=== PATIENT | male | born 1970 | race Caucasian/White ===

== ENCOUNTER 2022-12-19 22:59 | Emergency (ER) | payer BC, SELFPAY ==
[2022-12-19 23:02] VITALS: BP 136/96; PULSE 94; RESP 18; TEMP 36.7; O2SAT 98
--- NOTE | 2022-12-19 23:16 | ECG_ITS ---
Measurements Intervals [place] Rate: 76 P: 48 VA: 199 QRS: -52 QRSD: 98 T: 16 QT: 372 QTc: 418 Interpretive Statements SINUS RHYTHM LOW QRS VOLTAGE IN PRECORDIAL LEADS [QRS DEFLECTION < 1.0 mV IN CHEST LEADS] LEFT ANTERIOR FASCICULAR BLOCK [QRS AXIS <= -45, QR IN I, RS IN II] PREVIOUS iNFERIOR MYOCARDIAL INFARCTION , ABNORMAL ECG NO PREVIOUS ECG AVAILABLE FOR COMPARISON Electronically Signed On 12-20-2022 8:30:56 CDT by Bravo Solis M.D.
--- NOTE | 2022-12-19 23:20 | ED.GENADULT ---
HPI - General Adult General Chief complaint: Unspecified Stated complaint: weak, cramping, outside all day Time Seen by Provider: 12/19/22 23:09 History of Present Illness HPI narrative: Patient is a 52-year-old male here for evaluation of diffuse muscle cramping x1 day. 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 He states that he started to develop some diffuse muscle cramping. He has been getting intermittently sweaty. He states he stayed well-hydrated today but the cramping has gotten worse. No weakness, lightheadedness, nausea, vomiting, fevers, chills. He does take pravastatin but has been on this for 12 years. Related Data Allergies Allergy/AdvReac Type Severity Reaction Status Date / Time No Known Allergies Allergy Verified 12/19/22 23:00 Review of Systems Review of Systems: Gen.: Denies fevers or chills Eyes: Denies eye pain or visual change ENT: Denies congestion Respiratory: Denies shortness of breath or cough CV: Denies chest pain or palpitations GI: Denies abdominal pain nausea, emesis or diarrhea : denies burning, urgency, frequency or hematuria Musculoskeletal: Reports muscle cramping Neuro: Denies numbness, tingling, weakness or focal weakness Skin: Denies rash Except as documented, all other systems reviewed and negative Exam Narrative: APPEARANCE: Well appearing, no pain in distress, well-nourished. Head: Normocephalic and atraumatic. EYES: PERRLA/EOMI, conjunctivae clear NOSE: No nasal drainage EARS: External ear normal in appearance THROAT: Oropharynx is clear. Mucous membranes are moist. NECK: Supple. No adenopathy, no masses. RESPIRATORY: Airway patent, respirations nonlabored. Clear to auscultation bilaterally, no rales, rhonchi, wheezing. CARDIOVASCULAR: Regular rate and rhythm without murmurs, rubs, or gallops. ABDOMINAL: Normoactive bowel sounds. Soft, nontender, nondistended. No rebound tenderness or guarding. MUSCULOSKELETAL: Extremities are warm and well-perfused. Moves all extremities well. No edema. NEURO: Normal speech. No focal neurologic deficits. SKIN: Skin is warm and dry. No rashes. PSYCHIATRIC: Normal affect/mood. Course Vital Signs Vital signs: Vital Signs Temperature 98.1 F 12/19/22 23:02 Pulse Rate 94 12/19/22 23:02 Respiratory Rate 18 12/19/22 23:02 Blood Pressure 136/96 H 12/19/22 23:02 Pulse Oximetry 98 12/19/22 23:02 Oxygen Delivery Room Air 12/19/22 23:02 Temperature 98.1 F 12/19/22 23:02 Pulse Rate 73 12/20/22 01:01 Respiratory Rate 12 12/20/22 01:01 Blood Pressure 139/79 12/20/22 01:01 Pulse Oximetry 100 12/20/22 01:01 Oxygen Delivery Room Air 12/19/22 23:02 Medical Decision Making MDM Narrative Medical decision making narrative: 52-year-old male here for evaluation of muscle cramping and feeling sweaty after working outside in the heat all day. He is nontoxic in appearance and has normal vital signs. His EKG and troponin are nonischemic. His sodium is 131, potassium 3.2, creatinine is 1.5, CK slightly elevated at 813, not elevated enough to consider rhabdomyolysis. He was rehydrated and his potassium was repleted with marked improvement of his symptoms and he feels ready to go home. He understands he needs to get his electrolytes rechecked by his primary care doctor and push fluids over the next week. We discussed return precautions and he voiced understanding. Vital Signs Vital Signs: Vital Signs Temperature 98.1 F 12/19/22 23:02 Pulse Rate 94 12/19/22 23:02 Respiratory Rate 18 12/19/22 23:02 Blood Pressure 136/96 H 12/19/22 23:02 Pulse Oximetry 98 12/19/22 23:02 Oxygen Delivery Room Air 12/19/22 23:02 Temperature 98.1 F 12/19/22 23:02 Pulse Rate 73 12/20/22 01:01 Respiratory Rate 12 12/20/22 01:01 Blood Pressure 139/79 12/20/22 01:01 Pulse Oximetry 100 12/20/22 01:01 Oxygen Delivery Room Air 12/19/22 23
[2022-12-19 23:31] VITALS: BP 143/88; PULSE 77; RESP 13; O2SAT 98
[2022-12-19 23:31] LABS: Basophils Percent Auto 0.3 % (0.2-1.2); Eosinophils Percent Auto 0.1 % (0-4.4); Hematocrit 39.9 % (42.0-52.0); Hemoglobin 14.5 g/dL (14.0-18.0); Immature Granulocyte Absolute 0.03 K/mm3 (0.00-0.031); Immature Granulocyte Percent A 0.3 % (0-0.5); Lymphocytes Absolute Auto 1.61 K/mm3 (0.9-3.2); Lymphocytes Percent Auto 18.7 % (18.3-44.2); Mean Corpuscular HGB Conc 36.3 g/dl (32-36); Mean Corpuscular Hemoglobin 32.3 pg (26-34); Mean Corpuscular Volume 88.9 fl (80-100); Mean Platelet Volume 9.2 fl (7.4-10.4); Monocytes Absolute Auto 0.8 K/mm3 (0.1-0.6); Monocytes Percent Auto 8.7 % (2.6-8.5); Neutrophils Absolute Auto 6.2 K/mm3 (1.3-6.7); Neutrophils Percent Auto 71.9 % (45.5-73.1); Platelet Count Result 203 k/mm3 (150-375); Red Blood Count 4.49 M/mm3 (4.6-6.20); Red Cell Distribution Width 11.9 % (11.5-14.5); White Blood Count 8.6 K/mm3 (4.5-10.0)
[2022-12-19 23:46] LABS: Alanine Aminotransferase 41 U/L (6-50); Albumin Level 4.3 g/dL (3.5-5.1); Alkaline Phosphatase 48 U/L (38-126); Anion Gap 8 mmol/L (8-16); Aspartate Amino Transferase 48 U/L (17-59); Bilirubin,Total 0.7 mg/dL (0.2-1.3); Blood Urea Nitrogen 27 mg/dL (9-20); Carbon Dioxide 32 mmol/L (22-30); Chloride 91 mmol/L (98-107); Creatine Kinase 813 U/L (55-170); Estimated CRCL calculation 61 ml/min; Estimated Glomerular Filt Rate 49; Glucose 124 mg/dL (65-110); Magnesium 1.6 mg/dL (1.6-2.3); Potassium 3.2 mmol/L (3.4-5.0); Sodium 131 mmol/L (137-145)
[2022-12-19 23:57] LABS: Troponin I < 0.012 ng/mL (0.000-0.034)
[2022-12-19] MEDS: SODIUM CHLORIDE 0.9% IV 1,000 ML 999 ML IV CONT (23:58)
[2022-12-19] MEDS: POTASSIUM CHLORIDE 20 MEQ PACKET (FOR LIQUID) 40 MEQ PO (23:59)
[2022-12-20 00:16] VITALS: BP 145/80; PULSE 74; RESP 12; O2SAT 100
[2022-12-20 00:31] VITALS: BP 129/83; PULSE 70; RESP 9; O2SAT 100
[2022-12-20 01:00] LABS: Appearance Urine Clear (Clear); Bilirubin Urine Negative (Negative); Blood Urine Negative (Negative); Color Urine Yellow (Yellow); Glucose Urine UA Negative (Negative); Ketones Urine Negative (Negative); Leukocyte Esterase Ur Negative LEU/UL (Negative); Nitrate Urine Negative (Negative); Protein Urine Negative (Negative); Specific Grav Ur 1.018 (1.001-1.035); Urobilinogen Urine 0.2 mg/dL (<2.0); pH Urine 6.5 (5.0-9.0)
[2022-12-20 01:01] VITALS: BP 139/79; PULSE 73; RESP 12; O2SAT 100
[2022-12-20 01:37] LABS: Add Urine Microscopic? NO
[2022-12-20 01:46] VITALS: BP 140/84; PULSE 74; RESP 12; O2SAT 100
[2022-12-20] MEDS: SODIUM CHLORIDE 0.9% IV 500 ML 999 ML IV CONT (02:04)
[2022-12-20 02:16] VITALS: BP 141/93; PULSE 70; RESP 14; O2SAT 97
[2022-12-20 02:31] VITALS: BP 135/87; PULSE 68; RESP 15; O2SAT 98
== END 2022-12-20 02:45 | disposition home or self-care (01) ==
PROVIDERS: Emergency Provider Physician Assistant
DX: E86.0 Dehydration (principal); I44.4 Left anterior fascicular block; R94.31 Abnormal electrocardiogram [ECG] [EKG]
CPT/HCPCS: 36415; 80053; 81003; 82550; 83735; 84484; 85025; 93005; 96360; 96361; 99284; A9270; J7030; J7040